=== PATIENT | female | born 1975 | race Caucasian/White ===

== ENCOUNTER → 2021-10-13 | Outpatient (CLI) | payer OTHER ==
[~2021-10-13] MED LIST: BACTRIM DS TAB1 EACH PO; BASAGLAR K100 UNIT/1 INJ; BENTYL 20MG TAB20 MG PO; CYANOCOBAL1000 MCG/1 INJ; GLIPIZIDE5 MG PO; KEFLEX CAP 500500 MG PO; LODINE CAP 300300 MG PO; NORCO 10-325 T1 EACH PO; ZOFRAN ODT 4 MG4 MG PO; ZOFRAN ODT 4 MG4 MG SL
[2021-10-13 08:58] LABS: HEMOGLOBIN 16.3 gm/dl (12.3-15.3); RED BLOOD COUNT 5.26 M/UL (4.00-5.10); WHITE BLOOD COUNT 7.6 K/UL (4.5-11.0)
[2021-10-13 09:23] LABS: BUN/CREATININE RATIO 10 (0-10)
== END ==
LOC: OPSV2 07:55
PROVIDERS: Orthopaedic Surgery
DX: Z01.818 Encounter for other preprocedural examination (principal); M17.12 Unilateral primary osteoarthritis, left knee; R94.31 Abnormal electrocardiogram [ECG] [EKG]; R00.1 Bradycardia, unspecified
CPT/HCPCS: 71046; 80048; 80307; 83036; 85027; 93005

== ENCOUNTER → 2021-10-19 | Day surgery (SDC) | payer OTHER ==
[~2021-10-19] VITALS: Ht 170.2 cm; Wt 95.7 kg
[~2021-10-19] MED LIST changes: +ASPIRIN EC81 MG PO; +CYCLOBENZAPRINE10 MG PO; +ENDOCET 7.5-321 EACH PO; +ZOFRAN 4 MG TAB4 MG PO
== END | disposition home or self-care (01) ==
LOC: OR 06:57 → EDSTATUS 10:45 → OR 10:45
DX: M17.12 Unilateral primary osteoarthritis, left knee (principal); E11.9 Type 2 diabetes mellitus without complications; Z88.1 Allergy status to other antibiotic agents; Z88.5 Allergy status to narcotic agent; Z79.82 Long term (current) use of aspirin; Z20.822 Contact with and (suspected) exposure to COVID-19; F17.210 Nicotine dependence, cigarettes, uncomplicated; K76.0 Fatty (change of) liver, not elsewhere classified
CPT/HCPCS: 73560; 97161; 97165; C1713; C1776; J0171; J0690; J1100; J2001; J2250; J2370; J2405; J2704; J2710; J2795; J3010; J3370; J7120